=== PATIENT | male | born 1950 | race Caucasian/White ===

== ENCOUNTER → 2019-09-15 | Outpatient (CLI) | payer MEDICARE, OTHER ==
--- NOTE | 2019-09-15 16:33 | RAD ---
Right Lower Extremity Venous Doppler Ultrasound History: Reason: RIGHT LEG PAIN / Spl. Instructions: / History: Comparison: None Procedure: Color flow, duplex, spectral analysis and 2D images are obtained with and without compression in the area of the common femoral vein, superficial femoral vein - femoral vein junction, main femoral vein (superficial femoral vein) and popliteal vein. Veins of the proximal calf are also imaged. Findings: There is normal duplex flow, color flow and compressibility of all visualized vein segments. No evidence of deep venous thrombus is present. There is a 3.5 x 2.6 x 1.3 cm Baum's cyst. Impression: No evidence of DVT. Electronically signed by: Nelson Beneidct III, MD (09/15/2019 4:29 PM) [id number]
== END | disposition home or self-care (01) ==
LOC: DXRAD 15:51
PROVIDERS: ATTEND Family Medicine
DX: M79.604 Pain in right leg (principal); M71.21 Synovial cyst of popliteal space [Baker], right knee
CPT/HCPCS: 93971